=== PATIENT | female | born 1955 | race Caucasian/White ===

== ENCOUNTER 2022-01-03 09:46 | Outpatient (CLI) | payer MEDICARE, MEDICAID, SELFPAY ==
[2022-01-03 10:09] VITALS: BMI 38.0
--- NOTE | 2022-01-03 11:05 | NMCV_ITS ---
NM fanta perf SPECT r/s* [id number] BeccaBrianna Age: 66 Gender: F : 1955 Exam Date: 01/03/2022 11:11 Ordering Phys: Cody Priest MD Technologist: JENNIFER Ng Exam Location: [facility] Indications: CHEST PAIN STRESS TEST Please see separate stress test report in [facility] for full findings IMAGE PROTOCOL Rest/Stress 1 Exercise Day Radiopharmaceutical Dose (mCi) Administration Site Administered by Rest: Tc-99m 10.5 IV JENNIFER De Oliveira Sestamisam Stress:Tc-99m 32.7 IV JENNIFER De Oliveira Sestamisam Rest: 03-Jan-2022 60 Discovery 630 Stress: 03-Jan-2022 30 Discovery 630 Radiopharmaceutical was injected at 87 % maximum heart rate. Images obtained in supine and prone position. SPECT RESULTS Technical Quality: Excellent Raw Data Analysis: Normal Image Corrections: No attenuation or motion correction applied Summed Stress Score: 0 Summed Rest Score: 0 Summed Difference Score: 0 PERFUSION FINDINGS SPECT images demonstrate homogeneous tracer distribution throughout the myocardium. FUNCTIONAL RESULTS (calculated via Gated SPECT) Stress Image LV EF (%): 82 Stress EDV (mL):74 TID: 0.81 Stress ESV (mL):13 FUNCTIONAL FINDINGS: There is normal left ventricular systolic function. IMPRESSIONS 1. Normal myocardial perfusion imaging with no evidence of ischemia 2. LV systolic function is normal Saul Robertson MD (Electronically Signed) Final Date: 03 January 2022 13:33 S
--- NOTE | 2022-01-03 11:05 | ECG_ITS ---
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 Interpretive Statements NAME OF STUDY: EXERCISE SESTAMIBI STRESS TEST INDICATION: [Chest Pain, ] EXERCISE DATA: The patient was exercised by Uziel protocol. Baseline heart rate was 66 beats per minute. Baseline blood pressure was 139/79 millimeters of mercury. Target heart rate was 131 beats per minute. Maximum heart rate achieved was 143, which was 109% of the target heart rate. Maximum blood pressure was 263/83 millimeters of mercury. Total exercise time was 3 minutes. Maximum METs achieved was 4.6, maximum VO2 was 16. The reason for ending the test was completion of the protocol and maximal effort achieved. The patient complained of shortness of breath during the stress test, which then resolved at the end of the test. ELECTROCARDIOGRAM: BASELINE: Showed sinus rhythm, normal axis, no significant ST-T changes at the baseline noted. [] EXERCISE: At the peak exercise level, [] No significant ST-T changes suggestive of ischemia noted. [] RECOVERY: During the recovery period, heart rate dropped appropriately. No significant ST-T changes in the recovery suggestive of ischemia noted. [] CONCLUSION: 1. Exercise capacity poor. 2. Heart rate response was appropriate. 3. Blood pressure response was hypertensive 4. Symptoms not suggestive of ischemia. 5. Electrocardiogram portion of the stress test was not suggestive of ischemia. Electronically Signed On 02-06-2022 21:12:35 CDT by Saul Robertson M.D. [id number]
[2022-01-03 12:04] VITALS: BP 143/64; PULSE 81
== END 2022-01-03 09:47 | disposition home or self-care (01) ==
LOC: CDL 09:46
PROVIDERS: PCP Family Medicine; Visit Provider Family Medicine
DX: R07.9 Chest pain, unspecified (principal); R06.02 Shortness of breath
CPT/HCPCS: 78452; 93017; A9500

== ENCOUNTER 2022-05-14 14:03 | Emergency (ER) | payer MEDICARE, MEDICAID, SELFPAY ==
[2022-05-14 14:39] VITALS: BP 141/69; PULSE 75; RESP 18; TEMP 37.1; O2SAT 95; BMI 39.7
--- NOTE | 2022-05-14 15:41 | CTR_ITS ---
PROCEDURE INFORMATION: Exam: CT Neck With Contrast Exam date and time: 05/14/2022 7:24 PM Age: 67 years old Clinical indication: Abscess, cutaneous; Prior surgery; Surgery date: 6+ months; Surgery type: Thyroid; Patient HX: R facial/neck swelling/infection x 3 days. Redness; Additional info: R facial/neck swelling/infection, scan from mid face/mandibular region down TECHNIQUE: Imaging protocol: Computed tomography of the neck with contrast. Radiation optimization: All CT scans at this facility use at least one of these dose optimization techniques: automated exposure control; mA and/or kV adjustment per patient size (includes targeted exams where dose is matched to clinical indication); or iterative reconstruction. Contrast material: OMNIPAQUE 350; Contrast volume: 95 ml; Contrast route: INTRAVENOUS (IV); COMPARISON: CR XR ribs RT 2V* [id number] 01/22/2021 3:33 PM RADIATION DOSE METRICS: Total DLP (mGy-cm): 248.86 FINDINGS: Dental: There are multiple dental caries. There is a almost absent right mandibular tooth with periapical lucency extending through the buccal cortex. Pharynx: Unremarkable. No significant tonsillar enlargement. Larynx: Unremarkable. Epiglottis is normal. Prevertebral and retropharyngeal spaces: Unremarkable. Salivary glands: Normal. Glands are normal in size. Thyroid: Status post right hemithyroidectomy. The left lobe of the thyroid is enlarged and heterogeneous with multiple nodules measuring up to 11 mm. Lymph nodes: Unremarkable. No lymphadenopathy. Trachea: Visualized trachea is unremarkable. Lungs: Unremarkable as visualized. Bones/joints: Unremarkable. No acute fracture. Soft tissues: There is right facial and submandibular soft tissue swelling. There is thickening of the platysma on the right. No soft tissue fluid collection to indicate a soft tissue abscess. CT/CT neck w con* [id number] IMPRESSION: 1. Extensive right facial and submandibular cellulitis. 2. The cellulitis is centered adjacent to a right mandibular severe dental cavity and periapical dental abscess COMMENTS: Consistent with the [place] [employer]'s Incidental Findings Committee white paper (J Am Yari Radiol 2015): In patients aged 35 years and older with an incidental thyroid nodule equal to or greater than 1.[address], MRI or extrathyroidal US, further evaluation with dedicated thyroid US is recommended for patients with normal life expectancy and without comorbidities. For smaller nodules without suspicious features, no further evaluation or follow up is recommended.
--- NOTE | 2022-05-14 15:45 | ED_ITS ---
Documented by User: MATIAS Ireland 05/14/22 16:15 HPI - General Adult General: Chief complaint: Dental/Oral Stated complaint: Swollen jaw Time Seen by Provider: 05/14/22 15:18 Source: patient Mode of arrival: ambulatory Limitations: no limitations History of Present Illness: Patient is a 67-year-old female who presents to ED today after she was seen by Dr. Priest at [facility] for concerns of a facial infection. Patient tells me approximately 3 days ago she began noticing swelling to the right side of her face, cheek, and into her neck. Patient states since then swelling and pain has progressively worsened. Patient states she does not feel well and feels tired. Pain seems to be worse with eating and drinking. She is not having any trouble controlling her secretions. She denies any shortness of breath or difficulty breathing. Onset (ago): day(s) Location: face, mouth and neck Pain Consistency: constant Relieving factors: none Exacerbating factors: none Associated symptoms: Reports malaise; Deny chest pain, dyspnea, headache(s), nausea, rash or vomiting Treatments prior to arrival: other (leftover abx) Review of Systems Const: Reports: fatigue and malaise; Denies: fever(s), chills or body aches Eyes: Denies: change in vision, blurry vision, photophobia, floaters or seeing flashes ENMT: Reports: mouth pain, dental pain and sinus pain; Denies: uvular edema, enlarged tonsils, odynophagia, swelling of lips/tongue, oral sores, ear or mastoid pain, nasal discharge or nasal congestion Card: Denies: chest pain Resp: Denies: dyspnea GI: Denies: nausea or vomiting Musc: Reports: neck pain; Denies: back pain, extremity pain or joint pain Skin/Breast: Denies: rash Neuro: Denies: headache(s), numbness in extremities, weakness in extremities, sensory changes or dizziness [facility] ED PFSH: Medical History (Updated 05/15/22 @ 02:10 by MATIAS Nova) No pertinent family history No pertinent past medical history Physical Exam Const: COMMON NORMALS: no acute distress, patient oriented x3, no limitations and alert GENERAL APPEARANCE: cooperative NUTRITIONAL APPEARANCE: over weight ORIENTATION/CONSCIOUSNESS: Yes awake, Yes oriented to person, Yes oriented to place and Yes oriented to time HENMT: COMMON NORMALS: normocephalic, atraumatic and Normal external nose present HEAD & SCALP: normal to inspection, normocephalic and atraumatic FACE & SINUS: erythema and edema NOSE: Normal external nose present MOUTH: Normal oral and palatal mucosa present, lip normal and tongue normal TEETH & GINGIVA: Yes edentulous (top) and Yes poor dentition THROAT: posterior oropharynx normal, tonsils normal and uvula midline; no peritonsillar mass and no uvular edema OTHER: pt has erythema and firm edema to R mandibular region that extends into submental space; sublingal space seems unaffected-floor of mouth is soft and non-elevated; no crepitus/subcutaneous air noted; no drooling noted; no hot pot mo voice; no trismus; she is endentulous to top and has extensive periodontal disease throughout lower teeth Eye: GENERAL EYE: appearance normal, both eyes and all related structures Neck/C-Spine: COMMON NORMALS: full ROM, no lymphadenopathy and no meningeal signs GENERAL: Yes anterior neck swelling (mental and submental spaces) and Yes submandibular swelling (R) CERVICAL SPINE: Yes cervical ROM normal Resp: COMMON NORMALS: normal respiratory effort and clear to auscultation bilaterally AUSCULTATION: clear to auscultation bilaterally Cardio: COMMON NORMALS: regular rate and regular rhythm RATE: regular rate RHYTHM: regular rhythm Neuro: COMMON NORMALS: patient oriented x3 SENSORIUM/ORIENTATION: Yes alert, Yes oriented to person, Yes oriented to place and Yes oriented to time MENINGEAL SIGNS: Yes no meningeal signs Course Vital Signs: Vital signs: Vital Signs Temperature 98.7 F 05/14/22 21:25 Pulse Rate 72 05/14/22 21:25 Respiratory Rate 16 05/14/22 21:25 Blood Pressure 122/87 05/14/22 21:25 Pulse Oximetry 95 05/14/22 21:25 Oxygen Delivery Me thod 05/14/22 20:52 [facility] - General Adult Lab Data : 05/14/22 16:00 05/14/22 18:[address] 05/14/22 15:41 IMPRESSION: 1. Extensive right facial and submandibular cellulitis. 2. The cellulitis is centered adjacent to a right mandibular severe dental cavity and periapical dental abscess COMMENTS: Consistent with the [employer]'s Incidental Findings Committee white paper (J Am Yari Radiol 2015): In patients aged 35 years and older with an incidental thyroid nodule equal to or greater than 1.[address], MRI or extrathyroidal US, further evaluation with dedicated thyroid US is recommended for patients with normal life expectancy and without comorbidities. For smaller nodules without suspicious features, no further evaluation or follow up is recommended. Laboratory Results WBC 13.6 10^3/uL (4.0-10.0) H 05/14/22 16:00 RBC 4.95 10^6/uL (4.1-5.3) 05/14/22 16:00 Hgb 14.9 g/dL (11.5-15.3) 05/14/22 16:00 Hct 45.1 % (37.0-47.0) 05/14/22 16:00 MCV 91.1 fl (81-99) 05/14/22 16:00 MCH 30.1 pg (28.0-34.0) 05/14/22 16:00 MCHC 33.0 g/dL (30.0-36.0) 05/14/22 16:00 RDW 13.2 % (12.1-15.1) 05/14/22 16:00 Plt Count 240 10^3/cmm (130-400) 05/14/22 16:00 MPV 10.9 fL (7.4-10.4) H 05/14/22 16:00 Neut % (Auto) 72.9 % 05/14/22 16:00 Lymph % (Auto) 19.3 % 05/14/22 16:00 [place] % (Auto) 7.0 % 05/14/22 16:00 Eos % (Auto) 0.2 % 05/14/22 16:00 Baso % (Auto) 0.2 % 05/14/22 16:00 Neut # (Auto) 9.92 10^3/uL (1.8-7.7) H 05/14/22 16:00 Lymph # (Auto) 2.6 10^3/uL (0.8-4.8) 05/14/22 16:00 [place] # (Auto) 1.0 10^3/uL (0.2-0.9) H 05/14/22 16:00 Eos # (Auto) 0.0 10^3/uL (0.0-0.8) 05/14/22 16:00 Baso # (Auto) 0.0 10^3/uL (0.0-0.1) 05/14/22 16:00 Nucleated RBC % (auto) 0 % 05/14/22 16:00 Nucleated RBCs # 0.0 /100WBC 05/14/22 16:00 Sodium 138 mmol/L (136-145) 05/14/22 18:17 Potassium 3.9 mmol/L (3.5-5.1) 05/14/22 18:17 Chloride 103 mmol/L (98-107) 05/14/22 18:17 Carbon Dioxide 21 mmol/L (22-29) L 05/14/22 18:17 Anion Gap 17.9 (5-19) 05/14/22 18:17 BUN 9 mg/dL (8-23) 05/14/22 18:17 Creatinine 0.6 mg/dL (0.5-0.9) 05/14/22 18:17 GFR Calculation 99.7 mL/min (90-130) 05/14/22 18:17 Glucose 109 mg/dL (65-115) 05/14/22 18:17 Calculated Osmolality 285 mOsm/kg (285-295) 05/14/22 18:17 Calcium 9.5 mg/dL (8.5-10.5) 05/14/22 18:17 Total Bilirubin 0.6 mg/dL (0.15-1.2) 05/14/22 18:17 AST 14 U/L (0-32) 05/14/22 18:17 ALT 12 U/L (0-33) 05/14/22 18:17 Alkaline Phosphatase 129 U/L (35-105) H 05/14/22 18:17 C-Reactive Protein 48.0 mg/L (0.0-4.9) H 05/14/22 18:17 Total Protein 7.8 g/dL (6.6-8.7) 05/14/22 18:17 Albumin 4.2 g/dL (3.5-5.2) 05/14/22 18:17 Globulin 3.6 g/dL (1.3-4.6) 05/14/22 18:17 Discharge Plan Discharge Patient Disposition: Home Clinical Impression: Dental abscess Condition: Stable Prescriptions: New clindamycin HCl 150 mg capsule 300 mg PO QID 10 Days Qty: 80 0RF Discharge Orders: Discharge ED (Routine); Ordered 05/14/22 Ordered By: Manny Fontenot Referrals: Cody Priest MD [Primary Care Provider] - Discharge Diet: Advance as tolerated Discharge Activity: Increase activity as tolerated Patient Instructions: Dental Abscess (ED), Opioid Safety Activity Restrictions/Additional Instructions: Call dentist office on Monday morning to set up an appointment with them for further evaluation and management of dental abscess. Take medications as prescribed. Return to the ER or your medical provider if condition worsens. Please read and understand discharge instructions. Thank you for choosing [facility] for your healthcare needs today. Please realize this is an emergency room and that we are providing you with a medical screening exam and this may not be complete and all inclusive of all the testing and or work up that you may need to determine your ailment or severity of your illness. It is very important that you follow up as instructed or that you return to the Emergency Department should you have concerns or if your condition changes or worsens in any way. Sign Out Sign Out Data: Patient Sign Out occurred on 05/14/22 at 17:17. Patient's care was discussed, and care was transferred from to MATIAS Nova. Coding Level of Care Code ED Dispute Resolution Analyst for Chg Fwd Exam Detailed Documented by User: MATIAS Nova 05/15/22 02:13 HPI - General Adult General: Chief complaint: Dental/Oral Stated complaint: Swollen jaw Time Seen by Provider: 05/14/22 15:18 [facility] ED PFSH: Medical History (Updated 05/15/22 @ 02:10 by MATIAS Nova) No pertinent family history No pertinent past medical history Course Vital Signs: Vital signs: Vital Signs Temperature 98.7 F 05/14/22 21:25 Pulse Rate 72 05/14/22 21:25 Respiratory Rate 16 05/14/22 21:25 Blood Pressure 122/87 05/14/22 21:25 Pulse Oximetry 95 05/14/22 21:25 Oxygen Delivery Me thod 05/14/22 20:52 MDM - General Adult Medical Decision Making Patient is a 67-year-old female comes to the ED with dental pain and right lower jaw swelling. She saw her PCP Dr. Priest earlier today and he sent her here to the ED for further evaluation. Denies any trouble breathing. Vitals are stable. Patient has extensive dental caries and right lower jaw along with right mandible facial erythema and swelling. White blood cell count 13.6. CRP 48. Blood cultures pending. Neck CT showed extensive right facial and submandibular cellulitis which is centered around an adjacent right mandibular severe dental cavity and periapical dental abscess. Patient was given IV Unasyn here in the ED. She was stable for discharge home. She was told to contact her dentist on Monday morning to set up an appointment for further evaluation management of dental abscess. She was discharged home with prescription for clindamycin and hydrocodone for pain. Strict return to ED precautions given. Patient understood and agreed with plan. Lab Data I reviewed the patient's lab results. : 05/14/22 16:00 05/14/22 18:[address] 05/14/22 15:41 IMPRESSION: 1. Extensive right facial and submandibular cellulitis. 2. The cellulitis is centered adjacent to a right mandibular severe dental cavity and periapical dental abscess COMMENTS: Consistent with the [employer]'s Incidental Findings Committee white paper (J Am Yari Radiol 2015): In patients aged 35 years and older with an incidental thyroid nodule equal to or greater than 1.[address], MRI or extrathyroidal US, further evaluation with dedicated thyroid US is recommended for patients with normal life expectancy and without comorbidities. For smaller nodules without suspicious features, no further evaluation or follow up is recommended. Laboratory Results WBC 13.6 10^3/uL (4.0-10.0) H 05/14/22 16:00 RBC 4.95 10^6/uL (4.1-5.3) 05/14/22 16:00 Hgb 14.9 g/dL (11.5-15.3) 05/14/22 16:00 Hct 45.1 % (37.0-47.0) 05/14/22 16:00 MCV 91.1 fl (81-99) 05/14/22 16:00 MCH 30.1 pg (28.0-34.0) 05/14/22 16:00 MCHC 33.0 g/dL (30.0-36.0) 05/14/22 16:00 RDW 13.2 % (12.1-15.1) 05/14/22 16:00 Plt Count 240 10^3/cmm (130-400) 05/14/22 16:00 MPV 10.9 fL (7.4-10.4) H 05/14/22 16:00 Neut % (Auto) 72.9 % 05/14/22 16:00 Lymph % (Auto) 19.3 % 05/14/22 16:00 [place] % (Auto) 7.0 % 05/14/22 16:00 Eos % (Auto) 0.2 % 05/14/22 16:00 Baso % (Auto) 0.2 % 05/14/22 16:00 Neut # (Auto) 9.92 10^3/uL (1.8-7.7) H 05/14/22 16:00 Lymph # (Auto) 2.6 10^3/uL (0.8-4.8) 05/14/22 16:00 [place] # (Auto) 1.0 10^3/uL (0.2-0.9) H 05/14/22 16:00 Eos # (Auto) 0.0 10^3/uL (0.0-0.8) 05/14/22 16:00 Baso # (Auto) 0.0 10^3/uL (0.0-0.1) 05/14/22 16:00 Nucleated RBC % (auto) 0 % 05/14/22 16:00 Nucleated RBCs # 0.0 /100WBC 05/14/22 16:00 Sodium 138 mmol/L (136-145) 05/14/22 18:17 Potassium 3.9 mmol/L (3.5-5.1) 05/14/22 18:17 Chloride 103 mmol/L (98-107) 05/14/22 18:17 Carbon Dioxide 21 mmol/L (22-29) L 05/14/22 18:17 Anion Gap 17.9 (5-19) 05/14/22 18:17 BUN 9 mg/dL (8-23) 05/14/22 18:17 Creatinine 0.6 mg/dL (0.5-0.9) 05/14/22 18:17 GFR Calculation 99.7 mL/min (90-130) 05/14/22 18:17 Glucose 109 mg/dL (65-115) 05/14/22 18:17 Calculated Osmolality 285 mOsm/kg (285-295) 05/14/22 18:17 Calcium 9.5 mg/dL (8.5-10.5) 05/14/22 18:17 Total Bilirubin 0.6 mg/dL (0.15-1.2) 05/14/22 18:17 AST 14 U/L (0-32) 05/14/22 18:17 ALT 12 U/L (0-33) 05/14/22 18:17 Alkaline Phosphatase 129 U/L (35-105) H 05/14/22 18:17 C-Reactive Protein 48.0 mg/L (0.0-4.9) H 05/14/22 18:17 Total Protein 7.8 g/dL (6.6-8.7) 05/14/22 18:17 Albumin 4.2 g/dL (3.5-5.2) 05/14/22 18:17 Globulin 3.6 g/dL (1.3-4.6) 05/14/22 18:17 Discharge Plan Discharge Patient Disposition: Home Clinical Impression: Dental abscess Condition: Stable Prescriptions: New clindamycin HCl 150 mg capsule 300 mg PO QID 10 Days Qty: 80 0RF Discharge Orders: Discharge ED (Routine); Ordered 05/14/22 Ordered By: Manny Fontenot Referrals: Cody Priest MD [Primary Care Provider] - Discharge Diet: Advance as tolerated Discharge Activity: Increase activity as tolerated Patient Instructions: Dental Abscess (ED), Opioid Safety Activity Restrictions/Additional Instructions: Call dentist office on Monday morning to set up an appointment with them for further evaluation and management of dental abscess. Take medications as prescribed. Return to the ER or your medical provider if condition worsens. Please read and understand discharge instructions. Thank you for choosing [facility] for your healthcare needs today. Please realize this is an emergency room and that we are providing you with a medical screening exam and this may not be complete and all inclusive of all the testing and or work up that you may need to determine your ailment or severity of your illness. It is very important that you follow up as instructed or that you return to the Emergency Department should you have concerns or if your condition changes or worsens in any way. Sign Out Sign Out Data: Patient Sign Out occurred on 05/14/22 at 17:17. Patient's care was discussed, and care was transferred from to MATIAS Nova. Coding Level of Care Code ED Dispute Resolution Analyst for Chg Fwd Exam Detailed Documented by User: Russel Gandara DO 05/15/22 04:30 HPI - General Adult General: Chief complaint: Dental/Oral Stated complaint: Swollen jaw Time Seen by Provider: 05/14/22 15:18 [facility] ED PFS: Medical History (Updated 05/15/22 @ 02:10 by MATIAS Nova) No pertinent family history No pertinent past medical history Course Vital Signs: Vital signs: Vital Signs Temperature 98.7 F 05/14/22 21:25 Pulse Rate 72 05/14/22 21:25 Respiratory Rate 16 05/14/22 21:25 Blood Pressure 122/87 05/14/22 21:25 Pulse Oximetry 95 05/14/22 21:25 Oxygen Delivery Me thod 05/14/22 20:52 MDM - General Adult Medical Decision Making Patient is a 67-year-old female comes to the ED with dental pain and right lower jaw swelling. She saw her PCP Dr. Priest earlier today and he sent her here to the ED for further evaluation. Denies any trouble breathing. Vitals are stable. Patient has extensive dental caries and right lower jaw along with right mandible facial erythema and swelling. White blood cell count 13.6. CRP 48. Blood cultures pending. Neck CT showed extensive right facial and submandibular cellulitis which is centered around an adjacent right mandibular severe dental cavity and periapical dental abscess. Patient was given IV Unasyn here in the ED. She was stable for discharge home. She was told to contact her dentist on Monday morning to set up an appointment for further evaluation management of dental abscess. She was discharged home with prescription for clindamycin and hydrocodone for pain. Strict return to ED precautions given. Patient understood and agreed with plan. This patient was originally seen by Mrs. Gooden?ASHLEY Gallagher.? I agree with her history, evaluation, and treatment. Lab Data : 05/14/22 16:00 05/14/22 18:[address] 05/14/22 15:41 IMPRESSION: 1. Extensive right facial and submandibular cellulitis. 2. The cellulitis is centered adjacent to a right mandibular severe dental cavity and periapical dental abscess COMMENTS: Consistent with the [place] [employer]'s Incidental Findings Committee white paper (J Am Yari Radiol 2015): In patients aged 35 years and older with an incidental thyroid nodule equal to or greater than 1.[address], MRI or extrathyroidal US, further evaluation with dedicated thyroid US is recommended for patients with normal life expectancy and without comorbidities. For smaller nodules without suspicious features, no further evaluation or follow up is recommended. Laboratory Results WBC 13.6 10^3/uL (4.0-10.0) H 05/14/22 16:00 RBC 4.95 10^6/uL (4.1-5.3) 05/14/22 16:00 Hgb 14.9 g/dL (11.5-15.3) 05/14/22 16:00 Hct 45.1 % (37.0-47.0) 05/14/22 16:00 MCV 91.1 fl (81-99) 05/14/22 16:00 MCH 30.1 pg (28.0-34.0) 05/14/22 16:00 MCHC 33.0 g/dL (30.0-36.0) 05/14/22 16:00 RDW 13.2 % (12.1-15.1) 05/14/22 16:00 Plt Count 240 10^3/cmm (130-400) 05/14/22 16:00 MPV 10.9 fL (7.4-10.4) H 05/14/22 16:00 Neut % (Auto) 72.9 % 05/14/22 16:00 Lymph % (Auto) 19.3 % 05/14/22 16:00 [place] % (Auto) 7.0 % 05/14/22 16:00 Eos % (Auto) 0.2 % 05/14/22 16:00 Baso % (Auto) 0.2 % 05/14/22 16:00 Neut # (Auto) 9.92 10^3/uL (1.8-7.7) H 05/14/22 16:00 Lymph # (Auto) 2.6 10^3/uL (0.8-4.8) 05/14/22 16:00 [place] # (Auto) 1.0 10^3/uL (0.2-0.9) H 05/14/22 16:00 Eos # (Auto) 0.0 10^3/uL (0.0-0.8) 05/14/22 16:00 Baso # (Auto) 0.0 10^3/uL (0.0-0.1) 05/14/22 16:00 Nucleated RBC % (auto) 0 % 05/14/22 16:00 Nucleated RBCs # 0.0 /100WBC 05/14/22 16:00 Sodium 138 mmol/L (136-145) 05/14/22 18:17 Potassium 3.9 mmol/L (3.5-5.1) 05/14/22 18:17 Chloride 103 mmol/L (98-107) 05/14/22 18:17 Carbon Dioxide 21 mmol/L (22-29) L 05/14/22 18:17 Anion Gap 17.9 (5-19) 05/14/22 18:17 BUN 9 mg/dL (8-23) 05/14/22 18:17 Creatinine 0.6 mg/dL (0.5-0.9) 05/14/22 18:17 GFR Calculation 99.7 mL/min (90-130) 05/14/22 18:17 Glucose 109 mg/dL (65-115) 05/14/22 18:17 Calculated Osmolality 285 mOsm/kg (285-295) 05/14/22 18:17 Calcium 9.5 mg/dL (8.5-10.5) 05/14/22 18:17 Total Bilirubin 0.6 mg/dL (0.15-1.2) 05/14/22 18:17 AST 14 U/L (0-32) 05/14/22 18:17 ALT 12 U/L (0-33) 05/14/22 18:17 Alkaline Phosphatase 129 U/L (35-105) H 05/14/22 18:17 C-Reactive Protein 48.0 mg/L (0.0-4.9) H 05/14/22 18:17 Total Protein 7.8 g/dL (6.6-8.7) 05/14/22 18:17 Albumin 4.2 g/dL (3.5-5.2) 05/14/22 18:17 Globulin 3.6 g/dL (1.3-4.6) 05/14/22 18:17 Discharge Plan Discharge Patient Disposition: Home Clinical Impression: Dental abscess Condition: Stable Prescriptions: New clindamycin HCl 150 mg capsule 300 mg PO QID 10 Days Qty: 80 0RF Discharge Orders: Discharge ED (Routine); Ordered 05/14/22 Ordered By: Manny Fontenot Referrals: Cody Priest MD [Primary Care Provider] - Discharge Diet: Advance as tolerated Discharge Activity: Increase activity as tolerated Patient Instructions: Dental Abscess (ED), Opioid Safety Activity Restrictions/Additional Instructions: Call dentist office on Monday morning to set up an appointment with them for further evaluation and management of dental abscess. Take medications as prescribed. Return to the ER or your medical provider if condition worsens. Please read and understand discharge instructions. Thank you for choosing [facility] for your healthcare needs today. Please realize this is an emergency room and that we are providing you with a medical screening exam and this may not be complete and all inclusive of all the testing and or work up that you may need to determine your ailment or severity of your illness. It is very important that you follow up as instructed or that you return to the Emergency Department should you have concerns or if your condition changes or worsens in any way. Sign Out Sign Out Data: Patient Sign Out occurred on 05/14/22 at 17:17. Patient's care was discussed, and care was transferred from to MATIAS Nova. Coding Level of Care Code ED Dispute Resolution Analyst for Brittany Fwd Exam Detailed
[2022-05-14 16:08] LABS: Basophils % 0.2 %; Eosinophils % 0.2 %; Hematocrit 45.1 % (37.0-47.0); Hemoglobin 14.9 g/dL (11.5-15.3); Lymphocytes # 2.6 10^3/uL (0.8-4.8); Lymphocytes % 19.3 %; Mean Corpuscular Hemoglobin 30.1 pg (28.0-34.0); Mean Corpuscular Volume 91.1 fl (81-99); Mean Platelet Volume 10.9 fL (7.4-10.4); Neutrophils # 9.92 10^3/uL (1.8-7.7); Neutrophils % 72.9 %; Nucleated Red Blood Cells % 0 %; Platelet Count 240 10^3/cmm (130-400); Red Blood Count 4.95 10^6/uL (4.1-5.3); Red Cell Distribution Width 13.2 % (12.1-15.1); White Blood Count 13.6 10^3/uL (4.0-10.0)
[2022-05-14 16:21] VITALS: BP 151/83; PULSE 68; RESP 15; TEMP 37.2; O2SAT 96
[2022-05-14] MEDS: ampicillin-sulbactam 3 GM in sodium chloride 0.9% (plus) 50 ML IV (16:25)
[2022-05-14 18:47] LABS: Alanine Aminotransferase 12 U/L (0-33); Albumin Level 4.2 g/dL (3.5-5.2); Alkaline Phosphatase 129 U/L (35-105); Anion Gap 17.9 (5-19); Aspartate Amino Transferase 14 U/L (0-32); Blood Urea Nitrogen 9 mg/dL (8-23); Calcium 9.5 mg/dL (8.5-10.5); Carbon Dioxide 21 mmol/L (22-29); Chloride 103 mmol/L (98-107); Globulin 3.6 g/dL (1.3-4.6); Glomerular Filtration Rate 99.7 mL/min (90-130); Glucose 109 mg/dL (65-115); Osmolality Calculated 285 mOsm/kg (285-295); Potassium 3.9 mmol/L (3.5-5.1); Sodium 138 mmol/L (136-145); Total Bilirubin 0.6 mg/dL (0.15-1.2); Total Protein 7.8 g/dL (6.6-8.7)
[2022-05-14 18:48] VITALS: BP 121/62; PULSE 66; RESP 17; O2SAT 94
[2022-05-14] MEDS: sodium chloride 0.9% 500 ML 999 ML IV (18:48)
[2022-05-14] MEDS: iohexol 350 mg/mL 100 mL Btl IV (19:36)
[2022-05-14] MEDS: ondansetron 2 mg/ML SDV 2 mL 4 MG IVP (20:43)
[2022-05-14] MEDS: dexamethasone 10 mg/mL INJ IVP (20:44)
[2022-05-14] MEDS: HYDROcodone-acetaminophen 5-325 mg Tablet 2 TAB PO (20:44)
[2022-05-14 20:52] VITALS: BP 122/87; PULSE 72; RESP 16; TEMP 37.1; O2SAT 95
[2022-05-14 21:25] VITALS: BP 122/87; PULSE 72; RESP 16; TEMP 37.1; O2SAT 95
== END 2022-05-14 21:15 | disposition home or self-care (01) ==
PROVIDERS: Physician Assistant; Emergency Provider Physician Assistant; PCP Family Medicine
DX: K04.7 Periapical abscess without sinus (principal)
CPT/HCPCS: 36415; 70491; 80053; 85025; 86140; 87040; 96365; 96375; 99285; J0295; J1100; J2405; J7040; Q9967

== ENCOUNTER 2022-11-10 13:16 | Outpatient (CLI) | payer MEDICARE, MEDICAID, SELFPAY ==
--- NOTE | 2022-11-10 13:44 | MR_ITS ---
WS: [id number] MRI HEAD WITH CONTRAST TECHNIQUE: Sagittal T1, T2 axial, T2 axial FLAIR, axial susceptibility weighted imaging, axial diffus ion weighted images, and coronal T2 images were obtained. Pre and post-T1 axial and post T1 coronal i mages. ADC and FSPGR images. CLINICAL INFORMATION: CLOSED HEAD INJURY COMPARISON: None. FINDINGS: No evidence of restricted diffusion to suggest acute ischemia. Ventricular system and basilar cistern s are patent. Normal posterior fossa. Normal vascular flow voids at the skull base. No extra-axial fl uid collections. No evidence of mass or mass effect. Paranasal sinuses and mastoid air cells are well aerated. Normal posterior nasopharynx. Normal parapharyngeal fat. Moderate small vessel changes with moderate parenchymal volume loss. Mild small vessel changes in the zaid. Normal optic chiasm and pituitary infundibulum. Temporal lobes and hippocampal formations are normal in appearance. Normal cavernous sinuses and Meckel's cave. No hemosiderin on the susceptibly w eighted images. No abnormal gadolinium enhancement. Normal visualized dural venous sinuses. MR/MR head wo/w con [id number] IMPRESSION: 1. No evidence of restricted diffusion to suggest acute ischemia. 2. Moderate small vessel changes with moderate parenchymal volume loss. 3. No abnormal intracranial enhancement. 4. No hemosiderin on susceptibly weighted images. 5. No other suspicious findings.
[2022-11-10] MEDS: gadobenate dimeglumine 20 mL vial IV (16:28)
== END 2022-11-10 13:17 | disposition home or self-care (01) ==
PROVIDERS: PCP Family Medicine; Visit Provider Family Medicine
DX: S09.8XXA Other specified injuries of head, initial encounter (principal); X58.XXXA Exposure to other specified factors, initial encounter
CPT/HCPCS: 70553; A9577